=== PATIENT | female | born 1960 | race Caucasian/White ===

== ENCOUNTER → 2018-01-07 11:46 | Outpatient (CLI) | payer OTHER, SELFPAY ==
[2018-01-07 13:01] LABS: Alanine Aminotransferase 29 IU/L (9-52); Albumin 4.4 g/dL (3.5-5.0); Albumin Globulin Ratio 1.4 (1.0-2.8); Alkaline Phosphatase 64 U/L (38-126); Aspartate Aminotransferase 38 IU/L (14-36); Bilirubin Total 0.7 mg/dL (0.2-1.3); Blood Urea Nitrogen 14 mg/dL (7-17); Calcium 9.6 mg/dL (8.4-10.2); Carbon Dioxide 29 mmol/L (22-32); Chloride 102 mmol/L (98-107); Cholesterol 207 mg/dL (140-199); Estimated Glomerular Filt Rate > 60.0 mL/min (>60); Globulin 3.1 g/dL (1.7-4.1); Glucose 90 mg/dL (70-100); HDL Cholesterol 78 mg/dL (40-60); HEMOLYSIS < 15 (0-50); LDL Cholesterol Calculated 116 mg/dL (<100); Magnesium 1.9 mg/dL (1.6-2.3); Potassium 4.3 mmol/L (3.4-5.1); Sodium 140 mmol/L (137-145); Total Protein 7.5 g/dL (6.3-8.2); Triglycerides 67 mg/dL (35-150)
== END ==
PROVIDERS: Visit Provider Physician Assistant Medical
DX: I48.92 Unspecified atrial flutter (principal); E78.2 Mixed hyperlipidemia
CPT/HCPCS: 36415; 80053; 80061; 83735

== ENCOUNTER → 2018-07-01 09:40 | Outpatient (CLI) | payer OTHER, SELFPAY ==
--- NOTE | 2018-07-01 | DI.ECHO.S_ITS ---
[facility]---------+ [facility] +---------+ : : [address] : [address] : : : : [id number] : : : : Phone: [phone] +---------+ Echocardiogram Report + + :Name: NATHALY DORSEY Study Date: 07/01/2018 Height: 67 in : :[facility] Weight: 175 lb: : Gender: Female BSA: 1.9 m2 : :: 1960 Age: 58 yrs BP: 90/72 mmHg: :Reason For Study: Cardiomyopathy, Dilated : :Ordering Physician: Kamran : :Tomas Performed By: Crys Paris : + + Interpretation Summary The left ventricle is mildly dilated but is unchanged compared to the previous study and left ventricular systolic function remains mildly reduced with the ejection fraction estimated to be 45-50% but appears slightly more dynamic compared to the previous study. There is mild global hypokinesis without obvious focal wall motion abnormalities noted but poor endocardial definition reduces the sensitivity for the detection of such. The right ventricle is at the upper limits of normal in size and right ventricular systolic function is at the lower limits of normal but this appears unchanged compared to the previous study. The right ventricular systolic pressure is estimated to be at least 23 mmHg based on an estimated right atrial pressure of 3 mm Hg, and is likely unchanged compared to the previous study. Both atria are severely dilated. The left atrium has mildly decreased in size since the prior echo exam. There is a mechanical mitral valve prosthesis that appears to be well-seated. Mitral regurgitation is present, and may be perivalvular but assessment is difficult due to shielding from the prosthesis, but is likely in the mild range. This was not seen on the previous study. 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 There is mild to moderate tricuspid regurgitation that is more prominent compared to the previous study. Procedure: A two-dimensional transthoracic echocardiogram with color flow and Doppler was performed. The study quality was technically adequate. Comparison is made with the echocardiogram of 07/02/2017. The heart rate ranged between 70-90 bpm during the study. Left Ventricle: The left ventricle is mildly dilated. Left ventricular wall thickness is at the upper limits of normal. This is unchanged compared to the previous study. There is no ventricular septal defect visualized. Left ventricular systolic function is mildly reduced. The ejection fraction is estimated to be 45-50%. This is appears slightly more dynamic compared to the previous study. There is mild global hypokinesis of the left ventricle. There are no obvious focal wall motion abnormalities noted but poor endocardial definition reduces the sensitivity for the detection of such. Diastolic function could not be accurately assessed due to confounding valvular disease. Right Ventricle: The right ventricle is at the upper limits of normal in size. Right ventricular systolic function is at the lower limits of normal. This is unchanged compared to the previous study. Atria: Both atria are severely dilated. The left atrium has mildly decreased in size since the prior echo exam. There is no Doppler evidence for an interatrial shunt. Mitral Valve: There is a bi-leaflet ([employer]) mechanical prosthesis. The prosthetic mitral valve is well-seated. Mitral regurgitation is present, however its severity cannot be assessed due to shielding from the prosthesis. 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 Normal prosthetic mitral valve gradients. Aortic Valve: The aortic valve is normal in structure and function. The aortic valve is trileaflet. The aortic valve opens well. No aortic regurgitation is present. Tricuspid Valve: The tricuspid valve leaflets are thin and pliable. There is mild to moderate tricuspid regurgitation. This is more prominent compared to the previous study. The right ventricular systolic pressure is estimated to be at least 23 mmHg based on an estimated right atrial pressure of 3 mm Hg. This is unchanged compared to the previous study. Pulmonic Valve: The pulmonic valve is not well seen, but is grossly normal. There is no pulmonic valvular regurgitation. Great Vessels: The aortic root is normal size. The ascending aorta is normal in size. The aortic arch is normal in size. The pulmonary artery is not well visualized, but is probably normal size. The IVC is of normal diameter and collapses greater than 50% with a sniff. This suggests a low right atrial pressure of 3 mm Hg. Pericardium/ Pleura There is no pericardial effusion. MMode/2D Measurements & Calculations LVIDd: 6.0 cm LVOT diam: 2.2 cm LVIDs: 4.8 cm Ao root diam: 3.3 cm FS: 19.9 % Aortic Jxn: 2.9 cm IVSd: 0.92 cm asc Aorta Diam: 3.0 cm LVPWd: 0.91 cm Ao Arch Diam (Prox Trans): 2.8 cm LV merlos. diameter/BSA (cm/m^2): 3.1 LV sys. diameter/BSA (cm/m^2): 2.5 LA A2 area: 42.4 cm2 RA long axis: 6.6 cm LA A4 area: 41.4 cm2 RA area: 30.4 cm2 LA length (vol): 7.3 cm RA vol: 119.0 ml LA vol: 205.0 ml RA : 62.3 ml/m2 LA vol index: 107.3 ml/m2 IVC diam: 1.6 cm RVD1 (basal): 3.8 cm RVD2 (mid): 2.4 cm Doppler Measurements & Calculations Ao V2 max: 107.0 cm/sec LVOT Max Javon: 62.1 cm/sec Ao V2 mean: 81.1 cm/sec LV V1 max P.5 mmHg Ao max P.6 mmHg LV V1 VTI: 11.1 cm Ao mean P.8 mmHg KETAN(I,D): 2.3 cm2 Ao V2 VTI: 18.0 cm KETAN(V,D): 2.2 cm2 sev ratio: 0.62 KETAN indexed to BSA (cm^2/m^2): 1.2 MV E max javon: 144.6 cm/sec TR max javon: 218.8 cm/sec Med Peak E' Javon: 5.9 cm/sec TR max P.1 mmHg E/E' med: 24.5 PA V2 max: 46.3 cm/sec Lat Peak E' Javon: 11.5 cm/sec PA V2 mean: 30.8 cm/sec E/E' lat: 12.6 PA mean P.43 mmHg E/e' average: 18.6 PA Accel Time: 0.06 sec MV dec time: 0.27 sec MV P1/2t: 78.0 msec MVA(VTI): 1.7 cm2 MV V2 mean: 79.3 cm/sec MV P1/2t max javon: 144.6 cm/sec MV mean P.3 mmHg MVA(P1/2t): 2.8 cm2 MV V2 VTI: 24.2 cm Reading Physician:RADHA
[2018-07-01 12:23] LABS: Alanine Aminotransferase 28 IU/L (9-52); Albumin 4.6 g/dL (3.5-5.0); Albumin Globulin Ratio 1.5 (1.0-2.8); Alkaline Phosphatase 69 U/L (38-126); Aspartate Aminotransferase 46 IU/L (14-36); BUN Creatinine Ratio 12.9 (6-22); Bilirubin Total 0.6 mg/dL (0.2-1.3); Blood Urea Nitrogen 9 mg/dL (7-17); Calcium 9.8 mg/dL (8.4-10.2); Carbon Dioxide 31 mmol/L (22-32); Chloride 100 mmol/L (98-107); Estimated Glomerular Filt Rate > 60.0 mL/min (>60); Globulin 3.1 g/dL (1.7-4.1); Glucose 91 mg/dL (70-100); HEMOLYSIS < 15 (0-50); Potassium 4.7 mmol/L (3.4-5.1); Sodium 141 mmol/L (137-145); Total Protein 7.7 g/dL (6.3-8.2)
[2018-07-06 08:36] LABS: Lipoprofile NMR SEE SEPARATE REPORTS
== END ==
PROVIDERS: Visit Provider Specialist
DX: I08.1 Rheumatic disorders of both mitral and tricuspid valves (principal); I42.0 Dilated cardiomyopathy; I48.92 Unspecified atrial flutter; E78.2 Mixed hyperlipidemia; Z95.2 Presence of prosthetic heart valve
CPT/HCPCS: 36415; 80053; 83704; 83735; 93306

== ENCOUNTER → 2020-05-31 09:12 | Outpatient (CLI) | payer OTHER, SELFPAY ==
[2020-05-31 11:08] LABS: Alanine Aminotransferase 21 IU/L (<35); Albumin 4.4 g/dL (3.5-5.0); Albumin Globulin Ratio 1.4 (1.0-2.8); Alkaline Phosphatase 63 U/L (38-126); Aspartate Aminotransferase 39 IU/L (14-36); BUN Creatinine Ratio 16.7 (6-22); Bilirubin Total 0.6 mg/dL (0.2-1.3); Blood Urea Nitrogen 10 mg/dL (7-17); Calcium 9.6 mg/dL (8.4-10.2); Carbon Dioxide 35 mmol/L (22-32); Chloride 100 mmol/L (98-107); Cholesterol 223 mg/dL (140-199); Estimated Glomerular Filt Rate > 60.0 mL/min (>60); Globulin 3.2 g/dL (1.7-4.1); Glucose 98 mg/dL (80-110); HDL Cholesterol 69 mg/dL (40-60); HEMOLYSIS < 15 (0-50); LDL Cholesterol Calculated 135 mg/dL (<100); Potassium 3.9 mmol/L (3.4-5.1); Sodium 139 mmol/L (137-145); Total Protein 7.6 g/dL (6.3-8.2); Triglycerides 97 mg/dL (35-150)
== END ==
PROVIDERS: Referring Provider Specialist; Visit Provider Specialist
DX: E78.2 Mixed hyperlipidemia (principal)
CPT/HCPCS: 36415; 80053; 80061

== ENCOUNTER → 2021-05-15 07:53 | Outpatient (CLI) | payer OTHER, SELFPAY ==
--- NOTE | 2021-05-15 | DI.ECHO.S_ITS ---
[facility]---------+ [facility] +---------+ : : [address] : [place] : : : : [id number] : : : : Phone: [phone] +---------+ Echocardiogram Report + + :Name: NATHALY DORSEY Study Date: 05/15/2021 Height: 67 in : :[facility] ReadingLocation: Weight: 170 lb : : Gender: Female BSA: 1.9 m2 : :: 1960 Age: 61 yrs BP: 139/91 mmHg: :Reason For Study: TACHYCARDIA : :Ordering Physician: ARNULFO, : :DIANE Performed By: Jenn Knox : :Referring: DIANE ARREDONDO : + + Interpretation Summary Left ventricular systolic function remains mildly depressed with an estimated ejection fraction of around 45 to 50% with mild global hypokinesis but no obvious focal wall motion abnormality and appears unchanged from the previous study. Left ventricular volumes remain mildly increased but grossly unchanged from the previous exam. Diastolic function cannot be accurately assessed. The right ventricle appears to be borderline enlarged with borderline reduced systolic function but grossly unchanged from the previous exam. Right ventricular systolic pressure is estimated at 26 mmHg with a CVP of 3 mmHg and is likely similar to the previous exam. Both atria are severely enlarged and both have mildly increased in size since the previous study, the left atrium more so than the right. There is a mechanical mitral valve that appears to be well-seated with good leaflet mobility. There is no obvious mitral regurgitation seen although acoustic shadowing from the prosthesis reduces the sensitivity for the detection of such. There has been no significant change since the previous study. There is mild to moderate tricuspid regurgitation that appears unchanged from the previous exam. The ascending aorta is mildly enlarged at 3.4 cm and measures mildly larger compared to the previous study. The patient was in atrial fibrillation at 66-85 bpm, which is similar to the previous study. Procedure: A two-dimensional transthoracic echocardiogram with color flow and Doppler was performed. The study quality was technically adequate. Comparison is made with the echocardiogram of 07/01/2018. The patient was in atrial fibrillation with heart rates between 66-85 bpm during the exam. Left Ventricle: The left ventricle is mildly dilated. The estimated left ventricular end diastolic volume is 91 mL compared to the previous 114 ml. This is visually unchanged compared to the previous study. There is normal left ventricular wall thickness. Left ventricular systolic function is mildly reduced. The ejection fraction is estimated to be 45-50%. There is mild global hypokinesis of the left ventricle. There are no focal wall motion abnormalities. Diastolic function could not be accurately assessed due to confounding valvular disease. There has been no significant change since the previous study. Right Ventricle: The right ventricle is at the upper limits of normal in size. Right ventricular systolic function is borderline reduced. This is unchanged compared to the previous study. Atria: Both atria are severely dilated. Both atria have mildly increased in size since the prior echo exam. There is no Doppler evidence for an interatrial shunt. Mitral Valve: There is a mechanical mitral valve. This appears to be well- seated with good leaflet mobility. The annular plane seems to be oriented somewhat towards the septum but this is unchanged from the previous exam. There is no obvious mitral regurgitation although acoustic shadowing from the prosthesis reduces the sensitivity for the detection of such. There has been no significant change from the previous study. Aortic Valve: The aortic valve is trileaflet. The aortic valve is slightly calcified. The aortic valve opens well. There is no aortic valve stenosis. No aortic regurgitation is present. Tricuspid Valve: The tricuspid valve leaflets are thin and pliable. There is mild to moderate tricuspid regurgitation. This is unchanged compared to the previous study. The right ventricular systolic pressure is estimated to be at least 26 mmHg based on an estimated right atrial pressure of 3 mm Hg. This is likely similar compared to the previous study. Pulmonic Valve: The pulmonic valve leaflets are thin and pliable; valve motion is normal. There is trace pulmonic regurgitation. Great Vessels: The aortic root is normal size. The ascending aorta is mildly enlarged. This is mildly larger compared to the previous study. The IVC is of normal diameter and collapses greater than 50% with a sniff. This suggests a low right atrial pressure of 3 mm Hg. Pericardium/ Pleura There is no pericardial effusion. There is no pleural effusion. MMode/2D Measurements & Calculations LVIDd: 5.8 cm LVOT diam: 2.1 cm LVIDs: 4.4 cm Ao root diam: 3.1 cm FS: 23.5 % asc Aorta Diam: 3.4 cm IVSd: 0.75 cm Ao Arch Diam (Prox Trans): 3.0 cm LVPWd: 0.86 cm LV merlos. diameter/BSA (cm/m^2): 3.1 LV sys. diameter/BSA (cm/m^2): 2.3 LA A2 area: 49.5 cm2 RA long axis: 7.2 cm LA A4 area: 49.1 cm2 RA area: 33.2 cm2 LA length (vol): 8.1 cm RA vol: 130.8 ml LA vol: 255.7 ml RA : 69.3 ml/m2 LA vol index: 135.5 ml/m2 IVC diam: 2.0 cm RVD1 (basal): 3.9 cm TAPSE: 1.4 cm Doppler Measurements & Calculations Ao V2 max: 115.1 cm/sec LVOT Max Javon: 63.8 cm/sec Ao V2 mean: 79.6 cm/sec LV V1 max P.6 mmHg Ao max P.3 mmHg LV V1 VTI: 12.4 cm Ao mean P.8 mmHg KETAN(I,D): 2.0 cm2 Ao V2 VTI: 22.0 cm KETAN(V,D): 2.0 cm2 sev ratio: 0.56 KETAN indexed to BSA (cm^2/m^2): 1.1 Med Peak E' Javon: 9.4 cm/sec TR max javon: 238.1 cm/sec Lat Peak E' Javon: 9.8 cm/sec TR max P.7 mmHg MVA(VTI): 1.4 cm2 PA V2 max: 70.5 cm/sec PA V2 mean: 42.6 cm/sec PA mean P.83 mmHg PA pr(Accel): 55.0 mmHg MV V2 mean: 82.3 cm/sec SV(LVOT): 45.0 ml MV mean P.6 mmHg MV V2 VTI: 31.4 cm Reading Physician:05:33 PM
[2021-05-15 09:32] LABS: Alanine Aminotransferase 18 IU/L (<35); Albumin 4.4 g/dL (3.5-5.0); Albumin Globulin Ratio 1.3 (1.0-2.8); Alkaline Phosphatase 66 U/L (38-126); Aspartate Aminotransferase 42 IU/L (14-36); BUN Creatinine Ratio 15.5 (6-22); Bilirubin Total 0.6 mg/dL (0.2-1.3); Blood Urea Nitrogen 9 mg/dL (7-17); Calcium 9.4 mg/dL (8.4-10.2); Carbon Dioxide 33 mmol/L (22-32); Chloride 100 mmol/L (98-107); Estimated Glomerular Filt Rate > 60.0 mL/min (>60); Globulin 3.3 g/dL (1.7-4.1); Glucose 91 mg/dL (80-110); HEMOLYSIS < 15 (0-50); Potassium 4.2 mmol/L (3.4-5.1); Sodium 139 mmol/L (137-145); Total Protein 7.7 g/dL (6.3-8.2)
[2021-05-17 12:10] LABS: Cholesterol, Total 246 mg/dL (100-199); HDL-Cholesterol 78 mg/dL (>39); HDL-Particle (Total) 36.2 umol/L (>=30.5); LDL Particle 1106 nmol/L (<1000); LDL Size 21.8 nm (>20.5); LDL-Cholsterol 154 mg/dL (0-99); LP-IR Score <25 (<=45); Small LDL- Particle 192 nmol/L (<=527); Triglycerides 84 mg/dL (0-149)
== END ==
PROVIDERS: Visit Provider Specialist
DX: I07.1 Rheumatic tricuspid insufficiency (principal); I77.89 Other specified disorders of arteries and arterioles; R00.0 Tachycardia, unspecified; E78.00 Pure hypercholesterolemia, unspecified; I43 Cardiomyopathy in diseases classified elsewhere; R94.5 Abnormal results of liver function studies; Z95.2 Presence of prosthetic heart valve
CPT/HCPCS: 36415; 80053; 80061; 83704; 93306

== ENCOUNTER → 2022-05-16 11:12 | Outpatient (CLI) | payer OTHER, SELFPAY ==
[2022-05-16 19:45] LABS: Alanine Aminotransferase 28 IU/L (<35); Albumin 4.4 g/dL (3.5-5.0); Albumin Globulin Ratio 1.3 (1.0-2.8); Alkaline Phosphatase 80 U/L (38-126); Aspartate Aminotransferase 43 IU/L (14-36); BUN Creatinine Ratio 16.4 (6-22); Bilirubin Total 0.8 mg/dL (0.2-1.3); Blood Urea Nitrogen 9 mg/dL (7-17); Calcium 9.1 mg/dL (8.4-10.2); Carbon Dioxide 30 mmol/L (22-32); Chloride 99 mmol/L (98-107); Estimated Glomerular Filt Rate > 60 mL/min (>60); Globulin 3.3 g/dL (1.7-4.1); Glucose 101 mg/dL (80-110); HEMOLYSIS 19 (0-50); Magnesium 1.9 mg/dL (1.6-2.3); Sodium 137 mmol/L (137-145); Total Protein 7.7 g/dL (6.3-8.2)
[2022-05-19 12:48] LABS: Cholesterol, Total 169 mg/dL (100-199); HDL-Cholesterol 64 mg/dL (>39); HDL-Particle (Total) 36.4 umol/L (>=30.5); LDL Particle 866 nmol/L (<1000); LDL Size 21.1 nm (>20.5); LDL-Cholsterol 90 mg/dL (0-99); LP-IR Score 31 (<=45); Small LDL- Particle 422 nmol/L (<=527); Triglycerides 83 mg/dL (0-149)
== END ==
PROVIDERS: Visit Provider Specialist
DX: E78.2 Mixed hyperlipidemia (principal); I48.20 Chronic atrial fibrillation, unspecified
CPT/HCPCS: 80053; 80061; 83704; 83735

== ENCOUNTER → 2023-02-22 09:05 | Outpatient (CLI) | payer OTHER, SELFPAY ==
[2023-02-22 10:41] LABS: Alanine Aminotransferase 24 IU/L (<35); Albumin 4.5 g/dL (3.5-5.0); Albumin Globulin Ratio 1.3 (1.0-2.8); Alkaline Phosphatase 78 U/L (38-126); Aspartate Aminotransferase 46 IU/L (14-36); BUN Creatinine Ratio 13.5 (6-22); Bilirubin Total 0.5 mg/dL (0.2-1.3); Blood Urea Nitrogen 7 mg/dL (7-17); Calcium 9.2 mg/dL (8.4-10.2); Carbon Dioxide 29 mmol/L (22-32); Chloride 100 mmol/L (98-107); Estimated Glomerular Filt Rate > 60 mL/min (>60); Globulin 3.4 g/dL (1.7-4.1); Glucose 84 mg/dL (80-110); HEMOLYSIS < 15 (0-50); Magnesium 1.9 mg/dL (1.6-2.3); Potassium 4.1 mmol/L (3.4-5.1); Sodium 137 mmol/L (137-145); Total Protein 7.9 g/dL (6.3-8.2)
[2023-02-25 08:36] LABS: Cholesterol, Total 187 mg/dL (100-199); HDL-Cholesterol 70 mg/dL (>39); HDL-Particle (Total) 37.6 umol/L (>=30.5); LDL Particle 829 nmol/L (<1000); LDL Size 21.4 nm (>20.5); LDL-Cholsterol 102 mg/dL (0-99); LP-IR Score <25 (<=45); Small LDL- Particle 149 nmol/L (<=527); Triglycerides 83 mg/dL (0-149)
== END ==
PROVIDERS: PCP Specialist; Referring Provider Specialist; Visit Provider Specialist
DX: E78.2 Mixed hyperlipidemia (principal)
CPT/HCPCS: 36415; 80053; 80061; 83704; 83735

== ENCOUNTER → 2023-10-06 09:12 | Outpatient (CLI) | payer OTHER, MEDICAID, SELFPAY ==
--- NOTE | 2023-10-06 09:16 | DI.ECHO.S_ITS ---
[facility]---------+ [facility] +---------+ : : [address] : [place] [place] : : : : [id number] : : : : Phone: [phone] +---------+ Echocardiogram Report + + :Name: NATHALY DORSEY Study Date: 10/06/2023 Height: 67 in : :[facility] ReadingLocation: Weight: 175 lb : : Gender: Female BSA: 1.9 m2 : :: 1960 Age: 63 yrs BP: 106/80 mmHg: :Reason For Study: TRICUSPID INSUFFICIENCY : :Ordering Physician: ARNULFO, : :DIANE Performed By: Jenn Knox : :Referring: DIANE ARREDONDO : + + Interpretation Summary Left ventricular systolic function remains mildly to moderately depressed with an estimated ejection fraction of 40 to 45% with mild to moderate global hypokinesis but no focal abnormality and appears slightly less dynamic compared to the previous study but grossly unchanged. Left ventricular volumes are mildly increased and slightly larger compared to the previous exam. Diastolic function remains challenging to assess but there is no compelling evidence for significantly elevated filling pressures. The right ventricle remains borderline enlarged with mildly reduced systolic function but unchanged from the previous study. Right ventricular systolic pressure is estimated at 24 mmHg with a CVP of 3 mmHg and is likely similar to the previous exam. There is severe biatrial enlargement but essentially unchanged from the previous study. The mechanical mitral valve demonstrates good leaflet mobility with normal valve function. There is mild to moderate tricuspid regurgitation that appears unchanged. The ascending aorta and aortic arch remain borderline enlarged but similar to the previous exam. The patient was in atrial fibrillation of 56 to 77 bpm during the exam. Procedure: A two-dimensional transthoracic echocardiogram with color flow and Doppler was performed. The study quality was technically adequate. Comparison is made with the echocardiogram of 05/15/2021. The patient was in atrial fibrillation with heart rates between 56-77 bpm during the exam. Left Ventricle: There is normal left ventricular wall thickness. The left ventricle is mild-moderately dilated. The estimated left ventricular end diastolic volume is 116 mL compared to the previous 91 ml. Left ventricular systolic function is mild to moderately reduced. The ejection fraction is estimated to be 40-45%. There is mild to moderate global hypokinesis of the left ventricle. There are no focal wall motion abnormalities. This is perhaps slightly less dynamic but similar compared to the previous study. Diastolic function could not be accurately assessed due to confounding valvular disease. Right Ventricle: The right ventricle is borderline dilated. Right ventricular systolic function is mildly reduced. This is unchanged compared to the previous study. Atria: There is severe biatrial enlargement. This is unchanged compared to the previous study. There is no Doppler evidence for an interatrial shunt. Mitral Valve: There is a mechanical mitral valve. The prosthetic mitral valve is well-seated. The prosthetic mitral valve appears to open well. The gradients for this prosthetic mitral valve are in the normal range. The mean gradient is 4.2 mmHg compared to the previous 3.5 mmHg. There is trace mitral regurgitation. Aortic Valve: The aortic valve is trileaflet. The aortic valve is slightly calcified. The aortic valve opens well. There is no aortic valve stenosis. No aortic regurgitation is present. Tricuspid Valve: The tricuspid valve leaflets are thin and pliable. There is mild to moderate tricuspid regurgitation. This is unchanged compared to the previous study. The right ventricular systolic pressure is estimated to be at least 24 mmHg based on an estimated right atrial pressure of 3 mm Hg. This is likely similar compared to the previous study. Pulmonic Valve: The pulmonic valve leaflets are thin and pliable; valve motion is normal. There is trace pulmonic regurgitation. Great Vessels: The aortic root is normal size. The ascending aorta is at the upper limits of normal in size. The aortic arch is at the upper limits of normal in size. This is unchanged compared to the previous study. The IVC is dilated (diameter is greater than 2.1 cm) yet it collapses greater than 50% with a sniff. This suggests a right atrial pressure of 8 mm Hg. Pericardium/ Pleura There is no pericardial effusion. There is no pleural effusion. MMode/2D Measurements & Calculations LVIDd: 5.7 cm LVOT diam: 2.0 cm LVIDs: 4.4 cm Ao root diam: 3.3 cm FS: 21.5 % asc Aorta Diam: 3.3 cm IVSd: 0.98 cm Ao Arch Diam (Prox Trans): 3.1 cm LVPWd: 0.97 cm LV merlos. diameter/BSA (cm/m^2): 3.0 LV sys. diameter/BSA (cm/m^2): 2.3 LA A2 area: 49.1 cm2 RA long axis: 6.7 cm LA A4 area: 49.7 cm2 RA area: 31.1 cm2 LA length (vol): 8.4 cm RA vol: 122.8 ml LA vol: 247.8 ml RA : 64.3 ml/m2 LA vol index: 129.7 ml/m2 IVC diam: 2.1 cm RVD1 (basal): 3.9 cm RVD2 (mid): 3.0 cm TAPSE: 1.3 cm Doppler Measurements & Calculations Ao V2 max: 97.4 cm/sec LVOT Max Javon: 56.7 cm/sec Ao V2 mean: 70.5 cm/sec LV V1 max P.3 mmHg Ao max P.8 mmHg LV V1 VTI: 11.2 cm Ao mean P.2 mmHg KETAN(I,D): 2.0 cm2 Ao V2 VTI: 18.1 cm KETAN(V,D): 1.8 cm2 sev ratio: 0.62 KETAN indexed to BSA (cm^2/m^2): 1.0 MV E max javon: 142.4 cm/sec TR max javon: 233.5 cm/sec MV A max javon: 1.0 cm/sec TR max P.8 mmHg MV E/A: 140.7 PA V2 max: 59.0 cm/sec Lat Peak E' Javon: 8.8 cm/sec PA V2 mean: 42.5 cm/sec E/E' lat: 16.2 PA mean P.80 mmHg MV dec time: 0.21 sec PA pr(Accel): 31.0 mmHg MVA(VTI): 1.2 cm2 MV V2 mean: 89.4 cm/sec SV(LVOT): 35.4 ml MV mean P.2 mmHg MV V2 VTI: 28.7 cm Reading Physician:09:59 AM
== END ==
LOC: ECHO 09:15
PROVIDERS: PCP Specialist; Referring Provider Specialist; Visit Provider Specialist
DX: I36.1 Nonrheumatic tricuspid (valve) insufficiency (principal)
CPT/HCPCS: 93306

== ENCOUNTER → 2024-07-29 08:22 | Outpatient (CLI) | payer OTHER, SELFPAY ==
[2024-07-29 09:09] LABS: Alanine Aminotransferase 25 IU/L (<35); Albumin 4.6 g/dL (3.5-5.0); Albumin Globulin Ratio 1.6 (1.0-2.8); Alkaline Phosphatase 70 U/L (38-126); Aspartate Aminotransferase 47 IU/L (14-36); BUN Creatinine Ratio 16.9 (6-22); Bilirubin Total 0.7 mg/dL (0.2-1.3); Blood Urea Nitrogen 11 mg/dL (7-17); Calcium 9.4 mg/dL (8.4-10.2); Carbon Dioxide 33 mmol/L (22-32); Chloride 100 mmol/L (98-107); Estimated Glomerular Filt Rate > 60 mL/min (>60); Globulin 2.9 g/dL (1.7-4.1); Glucose 93 mg/dL (80-110); HEMOLYSIS < 15 (0-50); Magnesium 1.9 mg/dL (1.6-2.3); Potassium 4.1 mmol/L (3.4-5.1); Sodium 139 mmol/L (137-145); Total Protein 7.5 g/dL (6.3-8.2)
[2024-07-29 09:39] LABS: Thyroid Stimulating Hormone 5.12 uIU/mL (0.47-4.68)
== END ==
PROVIDERS: PCP Specialist; Referring Provider Specialist; Visit Provider Specialist
DX: I48.20 Chronic atrial fibrillation, unspecified (principal); E78.2 Mixed hyperlipidemia
CPT/HCPCS: 36415; 80053; 80061; 83704; 83735; 84443

== ENCOUNTER → 2024-09-01 11:21 | Outpatient (CLI) | payer OTHER, SELFPAY ==
[2024-09-01 11:58] LABS: Add Manual Diff / Slide Review NO; Basophils Absolute Auto 0 /uL (0-100); Basophils Percent Auto 0.5 % (0-2); Eosinophils Absolute Auto 200 /uL (0-450); Eosinophils Percent Auto 3.1 % (2-4); Hemoglobin 12.8 g/dL (12.0-16.0); Lymphocytes Absolute Auto 1000 /uL (1100-4500); Lymphocytes Percent Auto 19.1 % (25-40); Mean Corpuscular HGB Conc 33.7 % (30-36); Mean Corpuscular Hemoglobin 32.2 PG (26-34); Mean Corpuscular Volume 95.5 fL (80-100); Monocytes Absolute Auto 600 /uL (0-900); Monocytes Percent Auto 10.5 % (3-14); Neutrophils Absolute Auto 3500 /uL (1500-7000); Neutrophils Percent Auto 66.8 % (50-75); Platelet Count 268 X10^3/uL (150-400); Red Blood Cell Count 3.98 X10^6/uL (4.0-5.2); Red Cell Distribution Width 12.8 % (11.6-14.8); White Blood Cell Count 5.3 X10^3/uL (4.5-11.0)
[2024-09-01 12:38] LABS: TSH w/ Reflex to FT4 2.48 uIU/mL (0.47-4.68)
== END ==
PROVIDERS: PCP Specialist; Referring Provider Specialist; Visit Provider Specialist
DX: E03.9 Hypothyroidism, unspecified (principal); I48.20 Chronic atrial fibrillation, unspecified
CPT/HCPCS: 36415; 84443; 85025

== ENCOUNTER 2025-04-20 09:22 | Emergency (ER) | payer MEDICARE, OTHER, SELFPAY ==
[2025-04-20 09:26] VITALS: BP 133/86; PULSE 78; RESP 16; TEMP 36.9; O2SAT 95; BMI 27.3
--- NOTE | 2025-04-20 10:59 | ED_ITS ---
HPI - Extremity Problem <Belle Vanessa PA-C - Last Filed: 04/20/25 13:33> General Chief complaint: Extremity Problem,Nontraumatic Stated complaint: Possible clot on bottom of right foot . 02/2025 Time Seen by Provider: 04/20/25 10:46 History of Present Illness HPI Narrative: Ms. Leroy is a very pleasant 65-year-old female with a past medical history of AFib on warfarin, hypothyroidism, hyperlipidemia who presents to the emergency department for a mass on the bottom of her right foot x2 months. Patient is concerned this may be a blood clot. Reports the beginning of February this mass showed up in his slightly moved since then. It is firm and uncomfo rtable when she walks but no severe pain. No leg swelling or color change. No fevers or chills. No chest pain or shortness of breath. Related Data Home Medications ?Medication ?Instructions ?Recorded ?Confirmed levothyroxine 50 mcg tablet 50 mcg PO 01/24/23 3 metoprolol tartrate 50 mg tablet 50 mg PO 01/24/2302/09 rosuvastatin 5 mg tablet 5 mg PO 01/24/23 01/24/23 warfarin 10 mg tablet 10 mg PO 01/24/23 01/24/23 Allergies Allergy/AdvReac Type Severity Reaction Status Date / Time morphine Allergy Unknown Verified 01/24/23 15:54 Review of Systems <Belle Vanessa PA-C - Last Filed: 04/20/25 13:33> Review of Systems ROS Unobtainable: All systems reviewed & are unremarkable except as noted in HPI and below Patient History <Belle Vanessa PA-C - Last Filed: 04/20/25 13:33> Medical History Fractures Chicken pox (~1967) Hypothyroidism (~2017) Cardiac arrhythmia Atrial fibrillation Surgical History Anesthesia H/O mitral valve replacement with mechanical valve (~1998) Family History Father Brain aneurysm Mother History of heart disease Grandmother Cancer Exam <Belle Vanessa PA-C - Last Filed: 04/20/25 13:33> Narrative Exam Narrative: GENERAL: 65 year old patient appears stated age. Well-developed patient, in no acute distress. HEAD: Atraumatic. Normocephalic. EYES: No scleral icterus. No injection or drainage. NECK: Trachea midline. Cervical ROM intact. CARDIOVASCULAR: Regular rate and rhythm. RESPIRATORY: ?Nonlabored respirations. ?Speaking in clear, full sentences. EXTREMITIES: On the plantar aspect of the right foot, just proximal to the ball of the foot, around the 1st metatarsophalangeal joint region, there is a 2 cm round, firm, well circumcised masslike structure below the skin. There is no color change, minimal tenderness to palpation, no fluctuance or induration. This mass is somewhat mobile. Remainder of foot is within normal limits, 2+ DP and PT pulse and brisk cap refill on the toes. NEURO: AOx3. ?Clear speech. ?Moves all 4 extremities appropriately. SKIN: No rash or erythema of visible areas Initial Vital Signs Initial Vital Signs: Vital Signs Temperature 98.4 F 04/20/25 09:26 Pulse Rate 78 04/20/25 09:26 Respiratory Rate 16 04/20/25 09:26 Blood Pressure 133/86 04/20/25 09:26 Pulse Oximetry 95 04/20/25 09:26 Oxygen Delivery Method Room Air 04/20/25 09:26 <DO Edouard Hernandez Last Filed: 04/20/25 18:12> Initial Vital Signs Initial Vital Signs: Vital Signs Temperature 98.4 F 04/20/25 09:26 Pulse Rate 78 04/20/25 09:26 Respiratory Rate 16 04/20/25 09:26 Blood Pressure 133/86 04/20/25 09:26 Pulse Oximetry 95 04/20/25 09:26 Oxygen Delivery Method Room Air 04/20/25 09:26 Course <Belle Vanessa PA-C - Last Filed: 04/20/25 13:33> Orders Ordered: ED Orders 04/20/25 11:05 US extremity nonvasc lower rt Stat XR foot RT min 3V Stat Vital Signs Vital signs: Vital Signs - 8 hr 04/20/25 12:43 Pulse Rate 65 Blood Pressure 107/67 Pulse Oximetry 98 Oxygen Delivery Method Room Air <DO Edouard Hernandez Last Filed: 04/20/25 18:12> Orders Ordered: ED Orders 04/20/25 11:05 US extremity nonvasc lower rt Stat XR foot RT min 3V Stat Vital Signs Vital signs: Vital Signs - 8 hr 04/20/25 12:43 Pulse Rate 65 Blood Pressure 107/67 Pulse Oximetry 98 Oxygen Delivery Method Room Air MDM - Extremity (Nontraumatic) <Belle Vanessa PA-C - Last Filed: 04/20/25 13:33> Medical Records Attestation: I reviewed the patient's medical records. Imaging Data Right Foot XR: Radiologist's Impression: PROCEDURE: XR FOOT RT MIN 3V INDICATIONS: mass on bottom of foot TECHNIQUE: 3 views of the foot were acquired. COMPARISON: None. FINDINGS: Bones: No fractures or dislocations. No suspicious bony lesions. Mild hallux valgus deformity with narrowing of the 1st MTP joint. Soft tissues: No tibiotalar joint effusion. Achilles tendon appears normal. IMPRESSION: Hallux valgus deformity with MTP joint space narrowing. Dictated by: Jenny Young M.D. on 04/20/2025 at 11:44 Approved by: Jenny Young M.D. on 04/20/2025 at 11:45 R Foot Soft Tissue XR: Radiologist's Impression: PROCEDURE: US EXTREMITY NONVASC LOWER RT INDICATIONS: mass on bottom of foot? TECHNIQUE: Real-time scanning was performed of the right foot , with image documentation. COMPARISON: None. FINDINGS: Plantar aspect of the foot demonstrates a complex area of heterogeneous echogenicity measuring 1.1 x 1.6 x 0.5 cm. There is no tract to the skin. No increased vascularity. IMPRESSION: Complex focus within the soft tissues as above. Is nonspecific based on current findings. This could represent a complex/epidermoid cyst. However other etiologies cannot be excluded on the basis of this exam. Dictated by: Jenny Young M.D. on 04/20/2025 at 11:45 Approved by: Jenny Young M.D. on 04/20/2025 at 11:48 MDM Narrative Medical decision making narrative: 65-year-old female with a past medical history of AFib on warfarin, hypo thyroidism, hyperlipidemia who presents to the emergency department for a mass on the bottom of her right foot x2 months. Differential diagnosis includes but is not limited to plantar fibroma, cyst, lipoma, abscess, etc. On exam patient is in no acute distress, nontoxic appearing, vital signs appropriate. Right foot is neurovascularly intact with strong pulses, brisk cap refill and no skin changes. She does have a mobile, firm, nontender fleshy mass on the plantar foot, appears to be a possible plantar fibroma. She is concerned about DVT, she is anticoagulated and no leg swelling. We will obtain soft tissue ultrasound to further evaluate this mass in addition to baseline x-ray. Right foot ultrasound reveals complex focus within the soft tissues, nonspecific, could represent a cyst. X-ray reveals mild hallux valgus, otherwise no abnormalities. Printed discussed imaging results with the patient, she feels very reassured, discussed possible plantar fibroma and follow up with Podiatry for further management. Patient verbalized understanding of all information is agreeable to this plan, she is ambulatory and stable for discharge home. Discharge Plan Departure Patient Disposition: Home Clinical Impression: Mass of right foot Instructions: Plantar Fibromatosis Activity Restrictions/Additional Instructions: Dear Mariaa, Thank you for coming to the emergency department. Today you were evaluated for a masslike structure in the bottom of your foot. I suspect this may be a plantar fibroma, but you will need to see a resident care provider for further evaluation and diagnosis. Please follow up with a resident care provider for further evaluation and treatment of this lump. You may follow up with [facility] resident care provider Dr. Masterson, or [facility], or any other resident care provider your insurance takes. Please talk to your PCP if your insurance requires a referral. In the meantime, wearing comfortable, well padded shoes may help with any discomfort. Please follow up with your primary care doctor within the next 2-3 days for ER follow-up. (If you do not have a PCP you can call [phone]. ?to schedule an appointment with an [facility] Primary Care Provider) IF YOU DEVELOP ANY NEW OR WORSENING SYMPTOMS, RETURN TO THE ER! Please read the attached instructions, they highlight more specific treatments and interventions for you at home. Thank you for letting me participate in your care, Belle Vanessa PA-C Prescriptions: No Action rosuvastatin 5 mg tablet 5 mg PO metoprolol tartrate 50 mg tablet 50 mg PO levothyroxine 50 mcg tablet 50 mcg PO warfarin 10 mg tablet 10 mg PO Referrals: Esmer Masterson DPM [Physician, Podiatry] Referral Note: R foot plantar mass Denice Rodriguez MD [Primary Care Provider, Family Practice] Stand Alone Forms: Patient Portal/API ED Sign-out <Salma Ellis, - Last Filed: 04/20/25 18:12> Cosign ED Attending Cosignature Attestation: I was immediately available in the department for consultation.
--- NOTE | 2025-04-20 11:05 | DI.US.S_ITS ---
PROCEDURE: US EXTREMITY NONVASC LOWER RT INDICATIONS: mass on bottom of foot? TECHNIQUE: Real-time scanning was performed of the right foot , with image documentation. COMPARISON: None. FINDINGS: Plantar aspect of the foot demonstrates a complex area of heterogeneous echogenicity measuring 1.1 x 1.6 x 0.5 cm. There is no tract to the skin. No increased vascularity. IMPRESSION: Complex focus within the soft tissues as above. Is nonspecific based on current findings. This could represent a complex/epidermoid cyst. However other etiologies cannot be excluded on the basis of this exam. Dictated by: Jenny Young M.D. on 04/20/2025 at 11:45 Approved by: Jenny Young M.D. on 04/20/2025 at 11:48
--- NOTE | 2025-04-20 11:05 | DI.RAD.S_ITS ---
PROCEDURE: XR FOOT RT MIN 3V INDICATIONS: mass on bottom of foot TECHNIQUE: 3 views of the foot were acquired. COMPARISON: None. FINDINGS: Bones: No fractures or dislocations. No suspicious bony lesions. Mild hallux valgus deformity with narrowing of the 1st MTP joint. Soft tissues: No tibiotalar joint effusion. Achilles tendon appears normal. IMPRESSION: Hallux valgus deformity with MTP joint space narrowing. Dictated by: Jenny Young M.D. on 04/20/2025 at 11:44 Approved by: Jenny Young M.D. on 04/20/2025 at 11:45
--- NOTE | 2025-04-20 11:08 | PC.NURSE ---
Pt has an area on the bottom of her right foot approx the size of a dime that is hard to touch. No redness noted,pt has a small amount of pain.
--- NOTE | 2025-04-20 11:22 | PC.NURSE ---
pt to US following xray
[2025-04-20 12:43] VITALS: BP 107/67; PULSE 65; O2SAT 98
== END 2025-04-20 12:45 | disposition home or self-care (01) ==
PROVIDERS: Emergency Provider Physician Assistant; PCP Specialist
DX: R22.41 Localized swelling, mass and lump, right lower limb (principal)
CPT/HCPCS: 73630; 76882; 99283